=== PATIENT | female | born 1970 | race Caucasian/White ===

== ENCOUNTER → 2021-08-02 | Day surgery (SDC) | payer OTHER ==
[~2021-08-02] VITALS: Ht 165.1 cm; Wt 70.0 kg
[~2021-08-02] MED LIST: ALPR1TAB6 PO; CRESTOR40 MG PO; DESV100T PO; LANS30CA66 PO; LIDOCAINE 2% PF 5 ML VIAL. ONE; LOSA100T14 PO; PRAZ1CAP2 PO; PROPOFOL 10 MG/ML (20ML) VIAL. IV ONE; QUET100T4 PO
[2021-08-02 15:08] VITALS: BP 151/84
[2021-08-02] MEDS: IV RINGERS,LACTATED 1000ML 1,000 ML IV SCH ×2 (15:22→15:49)
--- NOTE | 2021-08-02 15:33 | PDOC4 ---
PROCEDURE Procedure EGD/dilation Indication: Dysphagia Meds: per anesthesia Findings: E--Grade B-C at GEJ. G--HH. Retained liquid food in body. D--Normal to second. --Dilated w/o resistance with 52F [place]. Ebenezer. well. IMP: GERD HH Apparent delayed gastric emptying. REC: Continue meds as before. F/u in 2 weeks. Consider GES. ÁNGEL CABELLO MD Aug 02, 2021 15:33
[2021-08-02 16:02] VITALS: BP 133/82
== END | disposition home or self-care (01) ==
LOC: SURG 14:54
PROVIDERS: ATTEND Internal Medicine Gastroenterology
DX: R13.10 Dysphagia, unspecified (principal); K21.00 Gastro-esophageal reflux disease with esophagitis, without bleeding; K44.9 Diaphragmatic hernia without obstruction or gangrene; K31.89 Other diseases of stomach and duodenum; K30 Functional dyspepsia; I10 Essential (primary) hypertension; E78.00 Pure hypercholesterolemia, unspecified; M19.90 Unspecified osteoarthritis, unspecified site; F41.9 Anxiety disorder, unspecified; F32.9 Major depressive disorder, single episode, unspecified; Z98.51 Tubal ligation status; Z90.710 Acquired absence of both cervix and uterus; Z98.890 Other specified postprocedural states; Z79.899 Other long term (current) drug therapy; Z87.891 Personal history of nicotine dependence; Z88.1 Allergy status to other antibiotic agents; Z88.8 Allergy status to other drugs, medicaments and biological substances
CPT/HCPCS: 43235; 43450; J2704; 43289